=== PATIENT | female | born 1980 | race Two or more races ===

== ENCOUNTER 2025-06-18 02:14 | Emergency (ER) | payer BC ==
[~2025-06-18] VITALS: Ht 160 cm; Wt 112.9 kg
[2025-06-18 02:55] LABS: APPEARANCE,URINE CLEAR (CLEAR); BLOOD, URINE TRACE-INTA Ery/uL (NEGATIVE); LEUKOCYTE ESTERASE ,URINE NEGATIVE (NEGATIVE); NITRITE, URINE NEGATIVE (NEGATIVE); UGLUCOSE 2+ mg/dL (NEGATIVE)
[2025-06-18 02:57] LABS: PREGNANCY TEST URINE QUAL NEGATIVE (NEGATIVE)
[2025-06-18] MEDS: IV NS 0.9% 1,000 ML BAG IV ONE (03:05)
[2025-06-18 03:07] LABS: PLATELET COUNT (AUTO) 294 K/uL (150-450); RED BLOOD CELL COUNT(AUTO) 2.70 MIL/uL (4.0-5.2); RED CELL DISTRIBUTION WIDTH 14.0 % (11.5-15.0); WHITE BLOOD COUNT (AUTO) 7.0 K/uL (4.3-11.0)
[2025-06-18 03:07] LABS: ADD URINE CULTURE YES; SQUAMOUS EPITHELIAL CELL,UR Few /HPF (None Seen); YEAST,URINE None Seen /HPF (None Seen)
[2025-06-18] MEDS ORDERED: PANTOPRAZOLE 40 MG VIAL ONE (03:07)
[2025-06-18] MEDS ORDERED: ONDANSETRON HCL/PF 4 MG/2 ML VIAL ONE (03:07)
[2025-06-18 03:08] LABS: HYALINE CASTS, URINE Rare /LPF (None Seen)
[2025-06-18] MEDS: PANTOPRAZOLE 40 MG VIAL IV ONE (03:12)
[2025-06-18] MEDS: ONDANSETRON HCL/PF 4 MG/2 ML VIAL IV ONE (03:13)
[2025-06-18 03:16] LABS: CALCIUM, SERUM 8.3 mg/dL (8.5-10.1); CREATININE 1.9 mg/dL (0.6-1.3); SODIUM SERUM 141.0 mmol/L (136-145); UREA NITROGEN, BLOOD 24.0 mg/dL (7-18)
[2025-06-18 03:22] LABS: ASPARTATE AMINOTRANSFERASE 13.0 U/L (15-37); TOTAL PROTEIN, SERUM 6.1 g/dL (6.4-8.2)
[2025-06-18 03:24] LABS: LACTIC ACID 1.0 mmol/L (0.4-2.0)
[2025-06-18] MEDS ORDERED: IV NS 0.9% 1,000 ML BAG IV ONE (04:00)
[2025-06-18] MEDS ORDERED: ONDA4TAB5 PO (04:09)
[2025-06-18] MEDS ORDERED: METR500T PO (04:09)
[2025-06-18] MEDS ORDERED: DICY10CA37 PO (04:09)
[2025-06-18] MEDS ORDERED: PANT40TA2 PO (04:09)
[2025-06-18] MEDS ORDERED: OXYC5TAB3 PO (04:09)
[2025-06-18] MEDS ORDERED: AMOX-430 PO (04:09)
[2025-06-18 04:40] VITALS: BP 139/84; TEMP 98.5; O2SAT 99
== END 2025-06-18 04:41 | disposition home or self-care (01) ==
LOC: ER 02:20
DX: N05.1 Unspecified nephritic syndrome with focal and segmental glomerular lesions (principal); K80.20 Calculus of gallbladder without cholecystitis without obstruction; Z79.899 Other long term (current) drug therapy
CPT/HCPCS: 99285; 96374; 76705; 96375; 85025; 87086; 83605; 83690; 83735; 84703; 81001; 36415; 80053; 86140; J2405; J7030; J2470